=== PATIENT | male | born 1965 | race Caucasian/White ===

== ENCOUNTER → 2018-04-26 | Outpatient (CLI) | payer OTHER | LOC: EDSTATUS 16:12 → GIMAGING 18:27 | PROVIDERS: ATTEND Internal Medicine | DX: M89.38 Hypertrophy of bone, other site (principal) | CPT/HCPCS: 71120-PO ==

== ENCOUNTER → 2018-06-01 | Outpatient (CLI) | payer OTHER | LOC: FIMAGING 12:57 | PROVIDERS: ATTEND Internal Medicine | DX: R22.2 Localized swelling, mass and lump, trunk (principal); M25.70 Osteophyte, unspecified joint; Q78.2 Osteopetrosis ==